=== PATIENT | female | born 1945 | race Caucasian/White ===

== ENCOUNTER 2017-02-09 09:31 | Outpatient (CLI) | payer OTHER ==
--- NOTE | 2017-02-09 11:05 | DIAGNOSTIC IMAGING REPORT ---
PROCEDURE: XR WRIST MIN 3 VIEWS - LEFT INDICATION: WRIST JOINT PX TECHNIQUE: Five views of the left wrist. COMPARISON: None. 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 IMPRESSION: 1. Trapezial metacarpal and trapezium scaphoid osteoarthritis.
== END 2017-02-09 23:00 ==
LOC: XR SRH 09:31
DX: M25.532 Pain in left wrist (principal); G47.00 Insomnia, unspecified; F32.9 Major depressive disorder, single episode, unspecified; F41.9 Anxiety disorder, unspecified; M19.032 Primary osteoarthritis, left wrist

== ENCOUNTER 2017-02-23 06:06 | Emergency (ER) | payer OTHER ==
--- NOTE | 2017-02-23 09:02 | DIAGNOSTIC IMAGING REPORT ---
PROCEDURE: ABDOMEN/PELVIS WITH CONTRAST CLINICAL INDICATION: ABDOMINAL PAIN TECHNIQUE: 125 ml of Isovue 300 were injected intravenously and axial images were obtained of the abdomen and pelvis with sagittal and coronal reformations. COMPARISON: None. FINDINGS: ABDOMEN: Clear lung bases. Normal sized heart. No hiatal hernia. The liver, gallbladder, adrenal glands, kidneys, pancreas and spleen are normal. The abdominal aorta is normal in its course and caliber. Moderate sclerosis. There are no suspicious calcifications, retroperitoneal adenopathy or masses. Intact anterior abdominal wall. There is mild edema and wall thickening circumferentially of the distal stomach without perigastric inflammation. No extraluminal gas. Small bowel loops are normal caliber. There are occasional diverticula in the proximal colon. Moderate diverticulosis in the distal descending and proximal sigmoid colon. The distal sigmoid colon demonstrates circumferential wall thickening, pericolonic inflammation surrounding an impacted diverticula. No extraluminal gas, free fluid, or focal fluid collection. PELVIS: The appendix and pelvic small bowel loops are normal. Normal amount of stool in the colon and rectum. The uterus, ovaries, urinary bladder, and pelvic vessels are normal. No adenopathy, free fluid, or pelvic mass. Degenerative sclerosis at the pubic symphysis. Mild leftward scoliosis of the lumbar spine. IMPRESSION: 1. Acute, uncomplicated, distal sigmoid diverticulitis. 2. Scattered mild to moderate diverticulosis, most prominent in the descending and proximal sigmoid colon. 3. Edematous changes of the distal stomach wall suggesting gastritis. Correlate clinically. 4. Findings called to the emergency room. All CT scans at this facility use dose modulation, iterative reconstruction, and/or weight-based dosing when appropriate to reduce radiation dose to as low as reasonably achievable.
--- NOTE | 2017-02-23 09:22 | ED NURSING NOTES ---
Clinical Report - Nurses [facility] [address] [place] [address] 02/23/2017 6:08 [id number] Triage time 06:12 Feb 23 2017. Acuity: LEVEL 3. Chief Complaint: PELVIC PAIN. SEPSIS SCREEN: Sepsis Screen: negative. Negative (no infection suspected/documented). HEYDI COMA SCORE: [place] Coma Scale: 15- eyes open spontaneously (4); best verbal response- oriented x 4 (5); best motor response- obeys commands (6). --06:16 Rylie Love 06:12 02/23/17. BP: 141/90. HR: 87. RR: 20. O2 saturation: 98% on room air. Temp: 97.7 F (oral). Pain level now: 05/08. --06:16 Rylie Love. Weight: 74.8 kg stated. Height/Length: 62 inches Per Patient. BMI: 30.2. --06:15 Rylie Love. Medications LORazepam Oral. --06:14 Rylie Love. Allergies No Known Drug Allergy. --06:15 Rylie Love. History Arrived by private vehicle. Historian: patient. Accompanied by family. This started today. ( Patient reports some lower abdominal/pelvic pain. She reports doing strenuous yard work three days ago and felt sore but this morning when she got up to use the restroom and felt severe pain in her pelvic region. She reports some issues with urination. She reports a hot bath helped her feel better but the pain is still persistent.). PAST MEDICAL HX: Immunizations: up-to-date. The patient is post-menopausal. SOCIAL HX: History of drug use: marijuana. No alcohol use. ABUSE ASSESSMENT: No report of abuse. SELF HARM ASSESSMENT: A self harm assessment was performed. The patient answered "no" to the question "Have you recently felt down, depressed, or hopeless?", "Have you noticed less interest or pleasure in doing things?", "Do you have thoughts of harming or killing yourself?", "Are you here because you tried to hurt yourself?", "Have you ever tried to hurt yourself before today?", "Have you recently had thoughts about harming or killing others?" and "Do you have any dangerous items in your possession?". FALL RISK ASSESSMENT: Fall risk assessment completed. No fall risk identified. NUTRITIONAL RISK ASSESSMENT: The nutritional risk assessment revealed no deficiencies. FUNCTIONAL ASSESSMENT: Functional assessment: no impairments noted. LEARNING NEEDS ASSESSMENT: The learning needs assessment revealed no barriers. SKIN INTEGRITY ASSESSMENT: Skin integrity risk assessment completed. No skin integrity risk identified. --06:16 Rylie Love Primary physician (mac). --06:16 Rylie Love. PROBLEMS: UTI - Urinary Tract Infection. Bronchitis. Immunizations. LNMP - Last Normal Menstrual Period. --06:15 Rylie Love. Interventions ID band on patient. To treatment room. --06:16 Rylie Love. PHYSICAL ASSESSMENT Ambulatory to room. GENERAL / NEURO / PSYCH: Alert. Oriented X 4. Appears in pain. HEENT: Mucous membranes are pink. RESPIRATORY: Respirations not labored. CVS: Normal heart rate and rhythm. GI / : Abdominal tenderness in the lower abdomen. Guarding present. SKIN: Skin is warm and dry. --06:17 Rylie Love. NURSING PROGRESS NOTES Patient gowned. Reassurance given to the patient. Two patient identifiers checked. Call light placed in reach. Side rails up x 1. Bed placed in lowest position. Brakes of bed on. Patient ready for evaluation- chart flagged and ED physician notified. --06:17 Rylie Love Patient ID band checked for patient name and birthdate: patient confirmed. Instructions provided to collect clean catch urine and patient verbalized understanding. Clean catch urine collected with return of deja-colored clear urine; sample sent to lab for urinalysis and culture. Specimen labeled in the presence of the patient. --06:36 Rylie Love Care transferred and report given (Juan F PACK). --07:10 Rylie Love 07:12 02/23/2017 Site #1 started via IV in the right antecubital space with an 20g angiocath, with aseptic technique and good blood return; one attempt. Blood drawn: rainbow set. Labeled in the presence of the patient and sent to the lab. Saline lock flushed with 10 mL saline. --07:22 Juan F Alvarez R.N. 07:22 02/23/2017 Started bag #1 1000 mL IV Fluids IV NS (Saline); at 1000 mL/hr over 1 hour(s) via site #1 via dial-a-flow. Allergies verified and confirmed 5 rights. IV patency established. IV site checked: no pain, redness, or swelling. IV flushed thoroughly pre- and post-medication administration. --07:23 Juan F Alvarez R.N. 09:32 02/23/2017 IV Fluids IV NS Discontinued: bag #1 infused. Total amount infused: 1000 mL. IV patency established. IV site checked: no pain, redness, or swelling. IV flushed thoroughly. --09:32 Juan F Alvarez R.N. 09:33 02/23/2017 Site #1 removed upon discharge. Catheter intact. Pressure dressing applied. --09:33 Juan F Alvarez R.N. DISPOSITION / DISCHARGE Departure time: :Feb 23 2017. Condition at departure: improved. No learning barriers present. Discharge instructions provided and reviewed with the patient. Reviewed warnings. Reviewed medication(s). Treatments reviewed. Reviewed referrals. Patient verbalized understanding. Written instructions provided in [place]. The patient was discharged home and accompanied by spouse. She left the Emergency Department ambulatory and via private vehicle. Spouse driving. --09:32 Juan F Alvarez R.N. 09:29 02/23/17. BP: 131/82. HR: 66. RR: 18. O2 saturation: 97%. Temp: 98.6 F. Pain level now 8/10. --09:32 Juan F Alvarez R.N. Locked/Released at 02/23/2017 18:53 by Juan F Alvarez R.N.
--- NOTE | 2017-02-23 09:22 | ED ORDER SUMMARY ---
..... Patient: KAYKAY STEPHENS OrderSheet [facility] VisitID: [id number] [address] [place] [address] 71y, F Registration Date/Time: 02/23/2017 ORDER SHEET Weight: 74.8 kg (stated) Allergies: No Known Drug Allergy GENERAL ORDERS: UA-Culture if indicated Urgent (06:34 02/23/2017 AMcQuoid ER Tech1 verbal order read back to Yosef DAVIS) (6:35 PWeiler ER Tech1) CT Abd/Pel w Cont (No) (see report) Urgent (07:06 02/23/2017 Yosef DAVIS) (Ack 7:07 TERESAeinuha ER Tech1) (8:28 Miguel) CBC w Diff Urgent (07:06 02/23/2017 Yosef DAVIS) (Ack 7:07 TERESAeinuha ER Tech1) (7:23 LWhalen R.N.) CMP Urgent (07:06 02/23/2017 Yosef DAVIS) (Ack 7:07 PWeiler ER Tech1) (7:23 LWhalen R.N.) Amylase Urgent (07:06 02/23/2017 Yosef DAVIS) (Ack 7:07 TERESAeinuha ER Tech1) (7:23 LWhalen R.N.) Lipase Urgent (07:06 02/23/2017 Yosef DAVIS) (Ack 7:07 TERESAeinuha ER Tech1) (7:23 LWhalen R.N.) Urine Drug Screen Urgent (07:08 02/23/2017 Yosef DAVIS) (Ack 7:10 TERESAeiler ER Tech1) (7:23 LWhalen R.N.) MEDICATION ORDERS: IV FLUIDS: IV NS : initial bolus 500 mL (1000 mL/hr), then 100 mL/hr for 4h (NOW); Urgent (07:05 02/23/2017 Yosef DAVIS) (7:23 LWhalen R.N.) IV Saline Lock (07:06 02/23/2017 Yosef DAVIS) (Ack 7:23 LWhalen R.N.) ORDER SHEET NOTES: [Electronically signed by Chris Fulton MD (09:29 02/23/2017)] [Electronically signed by Juan F Alvarez R.N. (18:53 02/23/2017)] [Electronically locked/signed by Juan F Alvarez R.N. (18:53 02/23/2017)]
--- NOTE | 2017-02-23 09:22 | ED ORDER SUMMARY ---
..... Patient: KAYKAY STEPHENS OrderSheet [facility] VisitID: [id number] [address] [place] [address] 71y, F Registration Date/Time: 02/23/2017 ORDER SHEET Weight: 74.8 kg (stated) Allergies: No Known Drug Allergy GENERAL ORDERS: UA-Culture if indicated Urgent (06:34 02/23/2017 AMcQuoid ER Tech1 verbal order read back to Yosef DAVIS) (6:35 PWeiler ER Tech1) CT Abd/Pel w Cont (No) (see report) Urgent (07:06 02/23/2017 Yosef DAVIS) (Ack 7:07 TERESAeinuha ER Tech1) (8:28 Miguel) CBC w Diff Urgent (07:06 02/23/2017 Yosef DAVIS) (Ack 7:07 TERESAeinuha ER Tech1) (7:23 LWhalen R.N.) CMP Urgent (07:06 02/23/2017 Yosef DAVIS) (Ack 7:07 PWeiler ER Tech1) (7:23 LWhalen R.N.) Amylase Urgent (07:06 02/23/2017 Yosef DAVIS) (Ack 7:07 TERESAeinuha ER Tech1) (7:23 LWhalen R.N.) Lipase Urgent (07:06 02/23/2017 Yosef DAVIS) (Ack 7:07 TERESAeinuha ER Tech1) (7:23 LWhalen R.N.) Urine Drug Screen Urgent (07:08 02/23/2017 Yosef DAVIS) (Ack 7:10 TERESAeiler ER Tech1) (7:23 LWhalen R.N.) MEDICATION ORDERS: IV FLUIDS: IV NS : initial bolus 500 mL (1000 mL/hr), then 100 mL/hr for 4h (NOW); Urgent (07:05 02/23/2017 Yosef DAVIS) (7:23 LWhalen R.N.) IV Saline Lock (07:06 02/23/2017 Yosef DAVIS) (Ack 7:23 LWhalen R.N.) ORDER SHEET NOTES: [Electronically signed by Chris Fulton MD (09:29 02/23/2017)] [Electronically signed by Juan F Alvarez R.N. (18:53 02/23/2017)] [Electronically locked/signed by Juan F Alvarez R.N. (18:53 02/23/2017)]
--- NOTE | 2017-02-23 09:22 | ED CLINICAL REPORT ---
Clinical Report - Physicians/Mid Levels [facility] [address] [place] [address] 02/23/2017 6:08 Patient: KAYKAY STEPHENS Time Seen: 06:19. Arrived- By private vehicle. Historian- patient. HISTORY OF PRESENT ILLNESS Chief Complaint: ABDOMINAL PAIN. This started yesterday and is still present but is improving. It was abrupt in onset and has been waxing/waning. At its maximum, severity described as 9 / 10. When seen in the E.D., severity described as 7 / 10. It is described as "pain" and cramping. No radiation. It is described as located in the lower abdomen. No nausea or loss of appetite. She has had diarrhea. It has contained mucous. (patient says that this may be due to a "muscle strain" as she had been doing some heavy gardening several days ago). REVIEW OF SYSTEMS No chills, fever, sweats, calf pain or chest pain. No cough, difficulty breathing, pedal edema, palpitations or black stools. No bloody stools, nausea or vomiting. She has had pain during urination (she says that this exacerbates the lower abdominal pain). she has a small bruise in the periorbital region around her eye on the left. When asked how this happened her spoke up and said she "stepped on a hoe.". All systems otherwise negative, except as recorded above. PAST HISTORY Problems: UTI - Urinary Tract Infection. Bronchitis. Medications: LORazepam Oral. Allergies: No Known Drug Allergy. SOCIAL HISTORY History of drug use: marijuana. No alcohol use. FAMILY HISTORY Cancer in first-degree relative (mother). ADDITIONAL NOTES The nursing notes have been reviewed. PHYSICAL EXAM Vital Signs: 02/23/2017 06:12 BP: 141/90. HR: 87. RR: 20. O2 saturation: 98%. Temp: 97.7 F. Pain level now: 7/10. Have been reviewed. Appearance: Alert. Eyes: Pupils equal, round and reactive to light. ENT: Pharynx normal. Neck: Normal inspection. Neck supple. CVS: Normal heart rate and rhythm. Heart sounds normal. Respiratory: No respiratory distress. Breath sounds normal. Abdomen: Soft. Moderate tenderness in the lower abdomen. Bowel sounds normal. No organomegaly. No mass. Obese. Back: Normal inspection. No CVA tenderness. Skin: Skin warm and dry. Normal skin color. Normal skin turgor. She has a small bruise to the face. Extremities: Extremities exhibit normal ROM. No lower extremity edema. LABS, X-RAYS, AND EKG Laboratory Tests: UA-Culture if indicated: (JOANNA: 02/23/2017 06:36) ( MsgRcvd 02/23/2017 06:45) Final results Test Result Flag Units (Reference) URINE COLOR YELLOW URINE APPEARANCE CLEAR URINE GLUCOSE NEGATIVE (NEGATIVE) URINE BILIRUBIN NEGATIVE (NEGATIVE) URINE KETONE NEGATIVE (NEGATIVE) URINE SPECIFIC GRAVITY 1.010 (1.010-1.030) URINE PH 6.0 (5.0-8.0) URINE PROTEIN NEGATIVE (NEGATIVE) URINE UROBILINOGEN 0.2 EU/dL (0.2-1.0) URINE NITRITE NEGATIVE (NEGATIVE) URINE BLOOD 2+ (NEGATIVE) URINE LEUK ESTERASE NEGATIVE (NEGATIVE) URINE RBC 0-1 rbc/hpf (0-1) URINE WBC RARE wbc/hpf (0-1) URINE EPITHELIAL CELLS 0-1 EPI/hpf (0-5) URINE BACTERIA NONE SEEN (NONE SEEN) URINE COMMENT CULT NOT INDICATED URINE CULTURES ARE SET-UP BASED ON THE FOLLOWING CRITERIA:POSITIVE NITRITEPOSITIVE LEUKOCYTE ESTERASEGREATER THAN 10 WHITE BLOOD CELLSMODERATE (2+) OR GREATER BACTERIA CBC w Diff: (JOANNA: 02/23/2017 07:30) ( Mscvd 02/23/2017 07:35) Final results Test Result Flag Units (Reference) WHITE BLOOD COUNT 12.7 H K/uL (4.5-11.5) RED BLOOD COUNT 4.51 M/uL (4.00-5.20) HEMOGLOBIN 14.4 gm/dL (12.0-16.0) HEMATOCRIT 43.0 % (36.0-46.0) MEAN CELL VOLUME 96 fL (80-100) MEAN CORPUSCULAR HGB 32 pg (26-34) MEAN CORPUSCULAR HGB CONC 34 g/dL (31-37) RED CELL DISTRIBUTION WIDTH 13.0 % (11.6-14.8) PLATELET COUNT 217 K/uL (150-400) NEUTROPHIL % 77.8 H % (50-75) LYMPH % 15.8 L % (25-40) MONO % 4.6 % (3-14) EOSINOPHIL % 1.4 % (0-4) BASOPHIL % 0.4 % (0-2) Urine Drug Screen: (JOANNA: 02/23/2017 06:45) ( MsgRcvd 02/23/2017 07:25) Final results Test Result Flag Units (Reference) AMPHETAMINE/METHAMPHETAMINE NEGATIVE (NEGATIVE) BARBITURATE NEGATIVE (NEGATIVE) BENZODIAZEPINE NEGATIVE (NEGATIVE) CANNABINOID POSITIVE H (NEGATIVE) COCAINE NEGATIVE (NEGATIVE) ECSTASY NEGATIVE (NEGATIVE) METHADONE NEGATIVE (NEGATIVE) OPIATE NEGATIVE (NEGATIVE) The urine drug screen is a qualitative screening test fordrug overdose and abuse. All screen results should beconsidered as presumptive.Drugs screened for are as follows:BenzodiazepinesCocaineAmphetamines/MetamphetaminesTHC (Tetrahydrocannabinol)OpiatesBarbituratesEcstasyMethadonePositive results are unconfirmed. For confirmation, notifythe lab for the specimen to be sent to the reference lab.All confirmations must be performed by a differentmethodology.The ingestion of natural herbal and plant productscontaining Ephedra/Ephedra metabolites can produce in urineone or more substances capable of cross reacting withamphetamine/methamphetamine immunoassays. These testsprovide a preliminary result only. A more specificalternative chemical method must be used to obtain aconfirmed analytical result. CMP: (JOANNA: 02/23/2017 07:30) ( MegRcvd 02/23/2017 07:47) Final results Test Result Flag Units (Reference) GLUCOSE 116 H mg/dL (70-110) BUN 13 mg/dL (7-18) CREATININE 1.0 mg/dL (0.6-1.3) Estimated GFR 58.43 mL/min Estimated GFR- >60 mL/min Note: Persistent reduction over 3 months in eGFR<60 mL/min/1.73 m2 defines CKD. Patients with eGFR values>=60 mL/min/1.73 m2 may also have CKD if evidence ofpersistent proteinuria. Additional information may be foundat www.kidney.org. SODIUM 142 mmol/L (136-145) POTASSIUM 3.9 mmol/L (3.5-5.1) CHLORIDE 105 mmol/L (98-107) CARBON DIOXIDE 22 mmol/L (21-32) CALCIUM 8.9 mg/dL (8.5-10.1) TOTAL PROTEIN 7.8 g/dL (6.4-8.2) ALBUMIN 3.6 g/dL (3.3-5.0) BILIRUBIN, TOTAL 1.2 H mg/dL (0.0-1.0) ALKALINE PHOSPHATASE 70 U/L (46-116) AST (SGOT) 24 U/L (15-37) ALT (SGPT) 36 U/L (12-78) LIPASE 131 U/L (73-393) AMYLASE 44 U/L (25-115) . PROGRESS AND PROCEDURES Course of Care: Patient is stable. Discussed case with patient's primary care provider, (Luke). Reviewed test results and need for additional work-up. Agreed upon treatment plan and need for patient follow-up. Health care provider will see patient in office. Refers case to other health care provider. Patient/family counseled. Old medical records reviewed. Disposition: Discharged. Condition: stable. CLINICAL IMPRESSION Acute diverticulitis. INSTRUCTIONS No driving or operating machinery while taking medication. Drink plenty of fluids. Warnings: Further evaluation is necessary. GENERAL WARNINGS: Return or contact your physician immediately if your condition worsens or changes unexpectedly, if not improving as expected, or if other problems arise. Prescription Medications: Hydrocodone/APAP 5mg/325mg: take 1 to 2 orally every 6 hours as needed for pain. Dispense fifteen (15). No refills. Cipro 500 mg: take 1 tab orally every 12 hours for 10 days. Dispense twenty (20). No refills. Substitution is permissible. Flagyl 500 mg: Take 1 tablet orally every 8 hours. No refill. Substitution is permissible Understanding of the discharge instructions verbalized by patient and family. Follow-up with: Terry Butler MD, [facility], , [facility], [address] [place] [address], [facility] Follow up tomorrow. Call for an appointment. (Electronically signed by Chris Fulton MD 02/23/2017 9:29)
--- NOTE | 2017-02-23 18:53 | ED MAR SUMMARY ---
..... Medication Administration Record [facility] [address] [place] [address] Patient: KAYKAY STEPHENS Visit ID: [id number] 71y, F Weight: 74.8 kg Height/Length: 62 in BMI: 30.2 ALLERGIES: No Known Drug Allergy Start 07:22 02/23/2017 Juan F Alvarez RJanesN., Stop 09:32 02/23/2017 Juan F Alvarez RJanesN. Medication Administered: IV NS (SALINE), Dose: IV Fluids over 1 hour(s), Rate: 1000 mL/hr, Dispensed: 1000 mL bag, Site: #1 right AC. Medication Ordered: IV NS : initial bolus 500 mL (1000 mL/hr), then 100 mL/hr for 4h (NOW); Urgent.
--- NOTE | 2017-02-23 18:53 | ED DISCHARGE INSTRUCTIONS ---
Patient: KAYKAY STEPHENS General Instructions [facility] VisitID: [id number] [address] [id number] 71y, F Registration Date/Time: 02/23/2017 Acute diverticulitis. INSTRUCTIONS No driving or operating machinery while taking medication. Drink plenty of fluids. Warnings: Further evaluation is necessary. GENERAL WARNINGS: Return or contact your physician immediately if your condition worsens or changes unexpectedly, if not improving as expected, or if other problems arise. Prescription Medications: Hydrocodone/APAP 5mg/325mg: take 1 to 2 orally every 6 hours as needed for pain. Dispense fifteen (15). No refills. Cipro 500 mg: take 1 tab orally every 12 hours for 10 days. Dispense twenty (20). No refills. Substitution is permissible. Flagyl 500 mg: Take 1 tablet orally every 8 hours. No refill. Substitution is permissible Understanding of the discharge instructions verbalized by patient and family. Follow-up with: Terry Butler MD, [facility], , [facility], [address] [place] [address] Follow up tomorrow. Call for an appointment. ADDITIONAL INFORMATION Diverticulitis Some people develop pouches along the wall of the colon as they get older. The pouches,called diverticuli, usually cause no symptoms. If the pouches become blocked, an infection may occur known as diverticulitis. This causes lower abdominal pain and fever. If not treated, it can become a serious condition, causing an abscess to form inside the pouch. The abscess may block the instestinal tract even or rupture, spreading infection throughout the abdomen. When treatment is started early, oral antibiotics alone may be enough to cure diverticulitis. This method is tried first. However, if you do not improve or if your condition worsens while you are trying oral antibiotics, it will be necessary to admit you to the hospital for IV antibiotics. Severe cases may require surgery. Home care The following guidelines will help you care for your diverticulitis at home: During the acute illness, rest and follow a low-fiber diet: Foods to Include: flake cereal, mashed potatoes, pancakes, waffles, pasta, white bread, rice, applesauce, bananas, eggs, meat, fish, poultry, tofu, cooked vegetables. Take antibiotics exactly as directed. Do not miss any doses or stop taking the medication, even if you feel better. Monitor your temperature and report any rising temperature to your doctor. Preventing future attacks Once you have had an episode of diverticulitis, you are at risk of having a recurrence. After you have recovered from this episode, you may be able to reduce your risk by eating a high-fiber diet (2035 gm/day of fiber). This cleans out the colon pouches that already exist and prevent new ones from forming. Foods high in fiber includes fresh fruits and edible peelings, raw or lightly cooked vegetables, whole grain cereals and breads, dried beans and peas, bran. Follow-up care Follow up with your doctor as advised or sooner if you are not improving in the nexttwo days. When to seek medical care Get prompt medical attention if any of the following occur: Fever of 100.4F (38C) or higher, or as directed by your health care provider Repeated vomiting or swelling of the abdomen Weakness, dizziness, light-headedness Increasing abdominal pain that becomes severe or spreads to your back Pain that moves to the right lower abdomen Rectal bleeding (red, black or maroon color of the stools) Unexpected vaginal bleeding Hydrocodone Bitartrate, Acetaminophen Oral tablet What is this medicine? ACETAMINOPHEN; HYDROCODONE (a set a BIBI rj fen; naveed droe KOE done) is a pain reliever. It is used to treat mild to moderate pain. How should I use this medicine? Take this medicine by mouth. Swallow it with a full glass of water. Follow the directions on the prescription label. If the medicine upsets your stomach, take the medicine with food or milk. Do not take more than you are told to take. Talk to your clinical laboratory service teacher regarding the use of this medicine in children. This medicine is not approved for use in children. What side effects may I notice from receiving this medicine? Side effects that you should report to your doctor or health managed care liaison as soon as possible: allergic reactions like skin rash, itching or hives, swelling of the face, lips, or tongue breathing problems confusion feeling faint or lightheaded, falls stomach pain yellowing of the eyes or skin Side effects that usually do not require medical attention (report to your doctor or health managed care liaison if they continue or are bothersome): nausea, vomiting stomach upset What may interact with this medicine? alcohol antihistamines isoniazid medicines for depression, anxiety, or psychotic disturbances medicines for sleep muscle relaxants naltrexone narcotic medicines (opiates) for pain phenobarbital ritonavir tramadol What if I miss a dose? If you miss a dose, take it as soon as you can. If it is almost time for your next dose, take only that dose. Do not take double or extra doses. Where should I keep my medicine? Keep out of the reach of children. This medicine can be abused. Keep your medicine in a safe place to protect it from theft. Do not share this medicine with anyone. Selling or giving away this medicine is dangerous and against the law. Store at room temperature between 15 and 30 degrees C (59 and 86 degrees F). Protect from light. Keep container tightly closed. Throw away any unused medicine after the expiration date. Discard unused medicine and used packaging carefully. Pets and children can be harmed if they find used or lost packages. What should I tell my health care provider before I take this medicine? They need to know if you have any of these conditions: brain tumor Crohn's disease, inflammatory bowel disease, or ulcerative colitis drink more than 3 alcohol-containing drinks per day drug abuse or addiction head injury heart or circulation problems kidney disease or problems going to the bathroom liver disease lung disease, asthma, or breathing problems an unusual or allergic reaction to acetaminophen, hydrocodone, other opioid analgesics, other medicines, foods, dyes, or preservatives or trying to get breast-feeding What should I watch for while using this medicine? Tell your doctor or health managed care liaison if your pain does not go away, if it gets worse, or if you have new or a different type of pain. You may develop tolerance to the medicine. Tolerance means that you will need a higher dose of the medicine for pain relief. Tolerance is normal and is expected if you take the medicine for a long time. Do not suddenly stop taking your medicine because you may develop a severe reaction. Your body becomes used to the medicine. This does NOT mean you are addicted. Addiction is a behavior related to getting and using a drug for a non-medical reason. If you have pain, you have a medical reason to take pain medicine. Your doctor will tell you how much medicine to take. If your doctor wants you to stop the medicine, the dose will be slowly lowered over time to avoid any side effects. You may get drowsy or dizzy when you first start taking the medicine or change doses. Do not drive, use machinery, or do anything that may be dangerous until you know how the medicine affects you. Stand or sit up slowly. There are different types of narcotic medicines (opiates) for pain. If you take more than one type at the same time, you may have more side effects. Give your health care provider a list of all medicines you use. Your doctor will tell you how much medicine to take. Do not take more medicine than directed. Call emergency for help if you have problems breathing. The medicine will cause constipation. Try to have a bowel movement at least every 2 to 3 days. If you do not have a bowel movement for 3 days, call your doctor or health managed care liaison. Too much acetaminophen can be very dangerous. Do not take Tylenol (acetaminophen) or medicines that contain acetaminophen with this medicine. Many non-prescription medicines contain acetaminophen. Always read the labels carefully. Ciprofloxacin Hydrochloride Oral tablet What is this medicine? CIPROFLOXACIN (sip yocasta FLOX a sin) is a quinolone antibiotic. It is used to treat certain kinds of bacterial infections. It will not work for colds, flu, or other viral infections. How should I use this medicine? Take this medicine by mouth with a glass of water. Follow the directions on the prescription label. Take your medicine at regular intervals. Do not take your medicine more often than directed. Take all of your medicine as directed even if you think your are better. Do not skip doses or stop your medicine early. You can take this medicine with food or on an empty stomach. It can be taken with a meal that contains dairy or calcium, but do not take it alone with a dairy product, like milk or yogurt or calcium-fortified juice. A special MedGuide will be given to you by the pharmacist with each prescription and refill. Be sure to read this information carefully each time. Talk to your clinical laboratory service teacher regarding the use of this medicine in children. Special care may be needed. What side effects may I notice from receiving this medicine? Side effects that you should report to your doctor or health managed care liaison as soon as possible: - allergic reactions like skin rash, itching or hives, swelling of the face, lips, or tongue - breathing problems - confusion, nightmares or hallucinations - feeling faint or lightheaded, falls - irregular heartbeat - joint, muscle or tendon pain or swelling - pain or trouble passing urine -persistent headache with or without blurred vision - redness, blistering, peeling or loosening of the skin, including inside the mouth - seizure - unusual pain, numbness, tingling, or weakness Side effects that usually do not require medical attention (report to your doctor or health managed care liaison if they continue or are bothersome): - diarrhea - nausea or stomach upset - white patches or sores in the mouth What may interact with this medicine? Do not take this medicine with any of the following medications: cisapride droperidol terfenadine tizanidine This medicine may also interact with the following medications: antacids caffeine cyclosporin didanosine (ddI) buffered tablets or powder medicines for diabetes medicines for inflammation like ibuprofen, naproxen methotrexate multivitamins omeprazole phenytoin probenecid sucralfate theophylline warfarin What if I miss a dose? If you miss a dose, take it as soon as you can. If it is almost time for your next dose, take only that dose. Do not take double or extra doses. Where should I keep my medicine? Keep out of the reach of children. Store at room temperature below 30 degrees C (86 degrees F). Keep container tightly closed. Throw away any unused medicine after the expiration date. What should I tell my health care provider before I take this medicine? They need to know if you have any of these conditions: -bone problems -cerebral disease -joint problems -irregular heartbeat -kidney disease -liver disease -myasthenia gravis -seizure disorder -tendon problems -an unusual or allergic reaction to ciprofloxacin, other antibiotics or medicines, foods, dyes, or preservatives - or trying to get -breast-feeding What should I watch for while using this medicine? Tell your doctor or health managed care liaison if your symptoms do not improve. Do not treat diarrhea with over the counter products. Contact your doctor if you have diarrhea that lasts more than 2 days or if it is severe and watery. You may get drowsy or dizzy. Do not drive, use machinery, or do anything that needs mental alertness until you know how this medicine affects you. Do not stand or sit up quickly, especially if you are an older patient. This reduces the risk of dizzy or fainting spells. This medicine can make you more sensitive to the sun. Keep out of the sun. If you cannot avoid being in the sun, wear protective clothing and use sunscreen. Do not use sun lamps or tanning beds/booths. Avoid antacids, aluminum, calcium, iron, magnesium, and zinc products for 6 hours before and 2 hours after taking a dose of this medicine. Metronidazole Oral tablet What is this medicine? METRONIDAZOLE ( troantonio NI da zole) is an antiinfective. It is used to treat certain kinds of bacterial and protozoal infections. It will not work for colds, flu, or other viral infections. How should I use this medicine? Take this medicine by mouth with a full glass of water. Follow the directions on the prescription label. Take your medicine at regular intervals. Do not take your medicine more often than directed. Take all of your medicine as directed even if you think you are better. Do not skip doses or stop your medicine early. Talk to your clinical laboratory service teacher regarding the use of this medicine in children. Special care may be needed. What side effects may I notice from receiving this medicine? Side effects that you should report to your doctor or health managed care liaison as soon as possible: allergic reactions like skin rash or hives, swelling of the face, lips, or tongue confusion, clumsiness difficulty speaking discolored or sore mouth dizziness fever, infection numbness, tingling, pain or weakness in the hands or feet trouble passing urine or change in the amount of urine redness, blistering, peeling or loosening of the skin, including inside the mouth seizures unusually weak or tired vaginal irritation, dryness, or discharge Side effects that usually do not require medical attention (report to your doctor or health managed care liaison if they continue or are bothersome): diarrhea headache irritability metallic taste nausea stomach pain or cramps trouble sleeping What may interact with this medicine? Do not take this medicine with any of the following medications: alcohol or any product that contains alcohol amprenavir oral solution cisapride disulfiram dofetilide dronedarone paclitaxel injection pimozide ritonavir oral solution sertraline oral solution sulfamethoxazole-trimethoprim injection thioridazine ziprasidone This medicine may also interact with the following medications: cimetidine lithium other medicines that prolong the QT interval (cause an abnormal heart rhythm) phenobarbital phenytoin warfarin What if I miss a dose? If you miss a dose, take it as soon as you can. If it is almost time for your next dose, take only that dose. Do not take double or extra doses. Where should I keep my medicine? Keep out of the reach of children. Store at room temperature below 25 degrees C (77 degrees F). Protect from light. Keep container tightly closed. Throw away any unused medicine after the expiration date. What should I tell my health care provider before I take this medicine? They need to know if you have any of these conditions: anemia or other blood disorders disease of the nervous system fungal or yeast infection if you drink alcohol containing drinks liver disease seizures an unusual or allergic reaction to metronidazole, or other medicines, foods, dyes, or preservatives or trying to get breast-feeding What should I watch for while using this medicine? Tell your doctor or health managed care liaison if your symptoms do not improve or if they get worse. You may get drowsy or dizzy. Do not drive, use machinery, or do anything that needs mental alertness until you know how this medicine affects you. Do not stand or sit up quickly, especially if you are an older patient. This reduces the risk of dizzy or fainting spells. Avoid alcoholic drinks while you are taking this medicine and for three days afterward. Alcohol may make you feel dizzy, sick, or flushed. If you are being treated for a sexually transmitted disease, avoid sexual contact until you have finished your treatment. Your sexual partner may also need treatment. You have been given the following additional information: Diverticulitis Hydrocodone Bitartrate, Acetaminophen Oral tablet Ciprofloxacin Hydrochloride Oral tablet Metronidazole Oral tablet No driving or operating machinery while taking medication. (Electronically signed by Chris Fulton MD 02/23/2017 9:29)
--- NOTE | 2017-02-23 18:53 | ED MED RECONCILIATION SUMMARY ---
Patient: KAYKAY STEPHENS Medication Reconciliation Report [facility] VisitID: [id number] [address] [place] [address] 71y, F Registration Date/Time: 02/23/2017 Weight: 74.8 kg Height/Length: 62 in. BMI: 30.2 ALLERGIES: No Known Drug Allergy The patient's Home Medications are listed below: THE FOLLOWING MEDICATIONS NEED TO BE RECONCILED: LORazepam Oral The source(s) of the original Home Medication information: Not obtained. The following Medications were given to the patient in the Emergency Department: IV NS IV Fluids bolus 0, then 1000 mL/hr, administered: 02/23/2017 7:22:00 AM The following Medications were prescribed to the patient: Hydrocodone/APAP 5mg/325mg: take 1 to 2 orally every 6 hours as needed for pain. Dispense fifteen (15). No refills. -- Chris Fulton MD Cipro 500 mg: take 1 tab orally every 12 hours for 10 days. Dispense twenty (20). No refills. Substitution is permissible. -- Chris Fulton MD Flagyl 500 mg: Take 1 tablet orally every 8 hours. No refill. Substitution is permissible -- Chris Fulton MD
--- NOTE | 2017-02-23 18:53 | ED MED RECONCILIATION SUMMARY ---
Patient: KAYKAY STEPHENS Medication Reconciliation Report [facility] VisitID: [id number] [address] [place] [address] 71y, F Registration Date/Time: 02/23/2017 Weight: 74.8 kg Height/Length: 62 in. BMI: 30.2 ALLERGIES: No Known Drug Allergy The patient's Home Medications are listed below: THE FOLLOWING MEDICATIONS NEED TO BE RECONCILED: LORazepam Oral The source(s) of the original Home Medication information: Not obtained. The following Medications were given to the patient in the Emergency Department: IV NS IV Fluids bolus 0, then 1000 mL/hr, administered: 02/23/2017 7:22:00 AM The following Medications were prescribed to the patient: Hydrocodone/APAP 5mg/325mg: take 1 to 2 orally every 6 hours as needed for pain. Dispense fifteen (15). No refills. -- Chris Fulton MD Cipro 500 mg: take 1 tab orally every 12 hours for 10 days. Dispense twenty (20). No refills. Substitution is permissible. -- Chris Fulton MD Flagyl 500 mg: Take 1 tablet orally every 8 hours. No refill. Substitution is permissible -- Chris Fulton MD
--- NOTE | 2017-02-23 18:53 | ED MAR SUMMARY ---
..... Medication Administration Record [facility] [address] [place] [address] Patient: KAYKAY STEPHENS Visit ID: [id number] 71y, F Weight: 74.8 kg Height/Length: 62 in BMI: 30.2 ALLERGIES: No Known Drug Allergy Start 07:22 02/23/2017 Juan F Alvarez RJanesN., Stop 09:32 02/23/2017 Juan F Alvarez RJanesN. Medication Administered: IV NS (SALINE), Dose: IV Fluids over 1 hour(s), Rate: 1000 mL/hr, Dispensed: 1000 mL bag, Site: #1 right AC. Medication Ordered: IV NS : initial bolus 500 mL (1000 mL/hr), then 100 mL/hr for 4h (NOW); Urgent.
== END 2017-02-23 09:35 | disposition home or self-care (01) ==
LOC: ED SRH 06:06
DX: K57.32 Diverticulitis of large intestine without perforation or abscess without bleeding (principal)
CPT/HCPCS: 90004; 90100; 92235; 92530; 92760; 92761; 92762; 92763; 92764; 92765; 92766; 92767; 95059